=== PATIENT | male | born 1990 | race Caucasian/White ===

== ENCOUNTER 2017-01-19 19:23 | Emergency (ER) | payer BC, OTHER ==
[~2017-01-19] VITALS: Ht 172.7 cm; Wt 89.4 kg
[~2017-01-19 19:23] MED LIST: LRT5 PO
[2017-01-19 19:28] VITALS: TEMP 37.1; Ht 172.7 cm; Wt 89.4 kg
[2017-01-19] MEDS ORDERED: PROPARACAINE HCL 0.5% OP SOLN 15 ML BTL OP STA (19:45)
[2017-01-19] MEDS ORDERED: OFLOXACIN 0.3% OP SOLN 5 ML BTL OP STA (20:38)
--- NOTE | 2017-01-19 20:48 | EMERGENCY ROOM VISIT NOTE ---
ED Visit Note First contact with patient: 19:38 CHIEF COMPLAINT: "Right eye is red" HISTORY OF PRESENT ILLNESS: This 26-year-old male presents to the emergency Department via private vehicle with complaints of "right eye is red". 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 He notes that he has had minimal eye pain since then, with watering and redness of the eye. He states that sometimes it feels as though there is something in his eye. He denies any vision change. He does not wear contacts or glasses. He states that shortly before coming here he was seen at [facility], who referred him here because there was a piece of metal stuck in his eye. His tetanus is up-to-date. REVIEW OF SYSTEMS:A complete 6-point Review of Systems was discussed with the patient, with pertinent positives and negatives listed in the History of Present Illness. All remaining Review of Systems questions can be considered negative unless otherwise specified. PMH: The patient is healthy; femur fracture SOCIAL HISTORY: Patient lives at home. PHYSICAL EXAM: Vital Signs: Reviewed Nurse's notes. Excellent visual acuity. GENERAL: This is a healthy-appearing person who is uncomfortable from the eye problem. The pupils are round, equal, and react to light. EOMs are full. There is discharge of clear tears from the injured eye which is injected. There is no foreign body visible under athe eyelid even after lid eversion. There was an easily visable black foreign body was seen embedded in the right cornea. Slit Lamp Examination was performed of the R eye(s). Alcaine drops were applied to the affected eye(s) for proper anesthetization. The affected eye (s) were stained with Fluorescein stain to precipitate adequate visualization of any conjunctival/scleral excoriations or ulcers. The patient's face was comfortably rested on the chin guard of the slit lamp apparatus. The lights were dimmed and the affected eye(s) were thoroughly examined under microscopy using the blue light. Punctate uptake was present at the location of a black foreign body at the medial aspect just medial to the right central axis of vision. Negative Eva sign. Additionally, the eye(s) were examined under microscopy using the regular light. Close examination revealed a retained metallic appearing foreign body with rust ring. Patient tolerated the procedure well and no complications were met. EMERGENCY DEPARTMENT COURSE: Patient was seen and evaluated as above. After obtaining a thorough history and physical examination it was apparent the patient was experiencing a metallic-like foreign body in the right cornea. This was verified by slit lamp exam. Patient verify consent, and a small, tuberculin needle that was sterile was utilized to remove the superficial portion of this off of the eye as well as using a moist cotton swab. Patient tolerated this well. There was still a retained piece that I do not feel comfortable removing in this setting. I did elect to call the on-call learning and development officer, Dr. Szymanski and spoke with him regarding the case. The call talk place at 8:37 PM. He instructed me to start the patient upon ofloxacin eyedrops, and have the patient call his office Sunday. I do believe this is reasonable I do not feel that additional intervention is necessary at this time. Patient we placed upon ofloxacin drops with close follow-up with the learning and development officer. He was provided the number and is to call first thing Sunday. He is to return here with any new/concerning symptoms. He does not want anything for pain. Patient has a clear diagnosis of right corneal foreign body. In the evaluation and treatment of this patient, the following differential diagnoses were considered: Corneal Abrasion, Conjunctivitis, Eye Contusion, Globe Injury, Orbital Floor Injury (Blowout Fracture), Corneal Ulcer, Keratitis , Herpes Zoster Opthalmic, Blepharitis, Orbital Cellulitis, Iritis, Scleritis/ Episcleritis, Uveitis, Temporal Arteritis, Subconjunctival Hemorrhage. Current/Historical Medications No Active Prescriptions or Reported Meds Allergies Coded Allergies: No Known Allergies (Unverified , 01/19/17) Vital Signs Date Time Temp Pulse Resp B/P Pulse Ox O2 Delivery O2 Flow Rate FiO2 01/19/17 20:55 66 16 117/63 99 01/19/17 19:28 37.1 89 18 135/89 97 Room Air Medications Administered Medications (Trade) Dose Ordered Sig/Joby Route Start Time Stop Time Status Last Admin Dose Admin Proparacaine HCl (Alcaine 0.5% Oph Soln) 2 drops NOW STAT OP 01/19/17 19:45 01/19/17 19:46 DC 01/19/17 19:45 2 DROPS Departure Information Impression Primary Impression: Corneal foreign body with residual material Dispostion Home / Self-Care Condition GOOD Prescriptions No Active Prescriptions or Reported Meds Referrals No Doctor, Assigned (PCP) Trevor Szymanski D.O. Patient Instructions My [facility] Additional Instructions You have been treated in the Emergency Department today for your Corneal Abrasion. You have been prescribed ofloxacin eye drops. This is an antibiotic which will help to prevent an infection from developing in your affected eye. You should use 1 drops in the affected eye every 3 hours while awake for the first 2 days, then every 6 hours for the remaining 5 days. This is a total of a 7-day course for these antibiotic eye drops. - Regular strength (325mg/tab) Tylenol (acetaminophen) 2 tabs every 4-6 hours as needed. Do not exceed 12 tablets in a 24 hour period. Avoid taking more than 4 grams (4000 mg) of Tylenol per day. This includes any other sources of acetaminophen you may take on a regular basis. - Regular strength (200 mg/tab) Advil (ibuprofen) 1-2 tabs every 4-6 hours as needed. Do not exceed a dose of 3200 mg per day. You should relax in a quiet, dark place for the rest of the day. You should wear sunglasses while outside for the next few days until your eyes are not as sensitive to the light. You should schedule a follow-up appointment in 2-3 days with (Manufacturing Test Technician) for further evaluation and treatment of your Corneal Abrasion. (DR. SZYMANSKI, please call this number first thing Sunday to schedule follow up). Return to the Emergency Department if your current symptoms worsen despite treatment course outlined above, or if you develop any of the following symptoms : intractable pain, visual disturbances, loss of vision, increased redness, swelling, drainage, or if you develop a fever. Please return to the emergency department with any new/concerning symptoms. Problem Qualifiers Primary Impression: Corneal foreign body with residual material Encounter type: initial encounter Laterality: right Qualified Codes: T15.01XA - Foreign body in cornea, right eye, initial encounter
[2017-01-19 20:55] VITALS: BP 117/63; PULSE 66; O2SAT 99
== END 2017-01-19 20:56 | disposition home or self-care (01) ==
LOC: C.EDB 19:25 → C.EDD 20:56
DX: T15.01XA Foreign body in cornea, right eye, initial encounter (principal); X58.XXXA Exposure to other specified factors, initial encounter